=== PATIENT | male | born 1985 | race Hispanic/Latino ===

== ENCOUNTER 2018-11-29 14:24 | Outpatient (CLI) | payer BC ==
--- NOTE | 2018-11-29 15:44 | ULT ---
SCROTAL ULTRASOUND: 11/29/18 INDICATION: Testicular pain. TECHNIQUE: Bonilla scale, color doppler with spectral doppler images were obtained in the scrotum. FINDINGS: The testicles demonstrate a normal sonographic appearance. Tiny small calcification seen within the a lbuginea of the left testicle. There is a small 6.5 mm right epididymal head cyst. There is normal fl ow to both testicles. The right testicle measures 5.7 x 3 x 2.8 cm. Left testicle measures 5. 3 x 3.5 x 2.6 cm. IMPRESSION: 1. No intratesticular mass or torsion demonstrated. 2. Right epididymal head cyst. POS: [facility]
== END 2018-11-29 14:25 | disposition home or self-care (01) ==
LOC: BICULT 14:24
PROVIDERS: ATTEND Internal Medicine
DX: N50.89 Other specified disorders of the male genital organs (principal); N50.3 Cyst of epididymis
CPT/HCPCS: 76870; 93976

== ENCOUNTER 2023-05-10 08:09 | Outpatient (CLI) | payer BC | END 2023-05-10 08:10 | disposition home or self-care (01) | LOC: ULT 08:09 | PROVIDERS: ATTEND Internal Medicine | DX: R74.01 Elevation of levels of liver transaminase levels (principal); K76.0 Fatty (change of) liver, not elsewhere classified | CPT/HCPCS: 76705 ==

== ENCOUNTER 2023-07-28 08:57 | Emergency (ER) | payer BC | END 2023-07-28 09:32 | disposition home or self-care (01) | LOC: ERS 08:57 | DX: G47.00 Insomnia, unspecified (principal); I10 Essential (primary) hypertension; Z79.899 Other long term (current) drug therapy | CPT/HCPCS: 99283 ==